=== PATIENT | female | born 1980 | race Caucasian/White ===

== ENCOUNTER → 2017-10-07 | Outpatient (CLI) | payer SELFPAY ==
--- NOTE | 2017-10-07 15:15 | RADIOLOGY REPORT (SQ) ---
EXAM DESCRIPTION: U/S [id number] TRNABD 1GES W/ODOP COMPLETED DATE/TIME: 10/07/2017 3:00 pm REASON FOR STUDY: ENCOUNTER FOR SUPERVISION OF NORMAL 1ST TRIMESTER Z34.81 ENCOUNTER FOR SUPRVSN OF NORMAL , FIRST TRIM COMPARISON: None. TECHNIQUE: Transabdominal static and realtime grayscale images acquired of the pelvis. Additional se lected spectral and color Doppler images recorded. All images stored on PACs. bHCG: Not available CLINICAL DATES: Last menses 08/08/2017 LIMITATIONS: None. FINDINGS: FETUS: Living intrauterine . ULTRASOUND EGA: 8 weeks 5 days ULTRASOUND BRODIE: 05/14/2018 CRL: 2.1 cm FHR: 173 beats per minute. SUBCHORIONIC BLEED: No SIZE OF BLEED: Not applicable. UTERUS: No masses. No anomalies. Uterus is 10 x 6 x 7 cm in size CERVICAL LENGTH: Closed, 2.7 cm in length RIGHT ADNEXA: Not visualized due to adnexal bowel gas. LEFT ADNEXA: Normal ovary with normal vascular flow. Left ovary 3 x 2.7 x 2.4 cm in size. No adnexal free fluid.No adnexal masses. FREE FLUID: None. OTHER: No other significant finding. IMPRESSION: LIVING INTRAUTERINE . EGA 8 weeks 5 days Trimester of : First - 0 to 13 weeks. TECHNICAL DOCUMENTATION: JOB ID: [id number] [employer]- All Rights Reserved rev Reading location - IP/workstation name: [facility]
== END ==
LOC: RAD 14:04
PROVIDERS: ATTEND Nurse Practitioner
DX: Z34.81 Encounter for supervision of other normal pregnancy, first trimester (principal)
CPT/HCPCS: 76801

== ENCOUNTER 2018-04-14 15:49 | Outpatient (CLI) | payer MEDICAID ==
--- NOTE | 2018-04-14 16:57 | Non Stress Test Report ---
Non Stress Test Datetime Report Generated by CPN: 04/14/2018 16:57 DEMOGRAPHIC Test Number: 1 EGA NST: 35.4 INDICATION Indication for Study: Ordered by Provider Indication for Study (NST) Other: lc to r/o srom MONITORING Monitor Explained: Monitor Explained; Test Explained; Patient Verbalized Understanding Time on Monitor: 04/14/2018 16:08 Time off Monitor: 04/14/2018 16:53 NST Duration: 45 NST INTERVENTIONS NST Interventions: PO Hydration; Reposition Patient Physician Notified NST: Dr Younger BABY A: [id number] BABY A Movement : Present Contraction Frequency : 8-9 FHR Baseline : 135 Accelerations : 15X15 Decelerations : None Variability : Moderate 6-25bpm NST Review: Meets Criteria for Reactive NST NST Results: Reactive NST REPORT Report Trigger: Send Report
== END 2018-04-14 16:58 | disposition home or self-care (01) ==
LOC: LC 15:49
PROVIDERS: ATTEND Obstetrics & Gynecology
PROC: 4A1HXCZ Monitoring of Products of Conception, Cardiac Rate, External Approach (ICD-10-PCS; principal; 2018-04-14)
DX: O47.03 False labor before 37 completed weeks of gestation, third trimester (principal); O09.523 Supervision of elderly multigravida, third trimester; O99.283 Endocrine, nutritional and metabolic diseases complicating pregnancy, third trimester; E03.9 Hypothyroidism, unspecified; Z3A.35 35 weeks gestation of pregnancy
CPT/HCPCS: 59025; 84112

== ENCOUNTER 2018-04-24 01:44 | Inpatient (IN) | payer MEDICAID ==
[2018-04-24 02:07] LABS: APPEARANCE,URINE SLIGHTLY-CLOUDY; BILIRUBIN,URINE NEGATIVE (NEGATIVE); COLOR,URINE YELLOW; GLUCOSE, URINE NEGATIVE (NEGATIVE); KETONES,URINE TRACE mg/dL (NEGATIVE); LEUKOCYTE ESTERASE,URINE TRACE (NEGATIVE); NITRITE,URINE NEGATIVE (NEGATIVE); PROTEIN,URINE NEGATIVE (NEGATIVE); URINE SPECIFIC GRAVITY 1.012; UROBILINOGEN,URINE NEGATIVE mg/dL (<2.0)
[2018-04-24] MEDS ORDERED: MISOPROSTOL 0.2 MG TABLET ONE (02:14)
[2018-04-24] MEDS ORDERED: LIDOCAINE 1% INJ-PF (10 MG/ML) 30 ML SDV ONE (02:14)
[2018-04-24] MEDS ORDERED: OXYTOCIN 10 UNIT/ML VIAL ONE (02:14)
[2018-04-24] MEDS ORDERED: OXYTOCIN/NORMAL SALINE 0 UNIT/0 ML RTUINJ ONE (02:14)
[2018-04-24] MEDS: RINGERS SOLUTION,LACTATED 1,000 ML IV PRN ×2 (02:21→06:57)
[2018-04-24 02:22] LABS: URINE AMPHETAMINES SCREEN NEGATIVE; URINE BARBITURATES SCREEN NEGATIVE; URINE BENZODIAZEPINES SCREEN NEGATIVE; URINE COCAINE SCREEN NEGATIVE; URINE MARIJUANA (THC) SCREEN NEGATIVE; URINE METHADONE SCREEN NEGATIVE; URINE PHENCYCLIDINE SCREEN NEGATIVE
[2018-04-24 02:29] LABS: ABSOLUTE EOSINOPHILS # (AUTO) 0.1 10^3/uL (0.0-0.6); ABSOLUTE LYMPHOCYTES (AUTO) 2.2 10^3/uL (0.5-4.7); ABSOLUTE MONOCYTES (AUTO) 0.5 10^3/uL (0.1-1.4); ABSOLUTE NEUT (AUTO) 6.3 10^3/uL (1.7-8.2); BASOPHILS % (AUTO) 0.5 % (0-2); HEMATOCRIT 29.9 % (36.0-47.0); HEMOGLOBIN 10.3 g/dL (12.0-15.5); MEAN CORPUSCULAR HEMOGLOBIN 28.8 pg (27.0-33.4); MEAN CORPUSCULAR HGB CONC 34.3 g/dL (32.0-36.0); MEAN CORPUSCULAR VOLUME 84 fl (80-97); MONOCYTES % (AUTO) 5.8 % (3-13); PLATELET COUNT 200 10^3/uL (150-450); RED BLOOD COUNT 3.56 10^6/uL (3.72-5.28); RED CELL DISTRIBUTION WIDTH 13.9 % (11.5-14.0); SEGMENTED NEUTROPHILS % (AUTO) 68.7 % (42-78); TOTAL CELLS COUNTED % (AUTO) 100 %; WHITE BLOOD COUNT 9.2 10^3/uL (4.0-10.5)
[2018-04-24] MEDS ORDERED: OXYTOCIN/NORMAL SALINE 20 UNIT/1,000 ML RTUINJ ONE (05:01)
[2018-04-24] MEDS ORDERED: OXYTOCIN/NORMAL SALINE 20 UNIT/1,000 ML RTUINJ IV PRN ×2 (05:04→12:43)
[2018-04-24] MEDS ORDERED: HYDRALAZINE HCL 10 MG TABLET PEG PRN (05:18)
[2018-04-24] MEDS ORDERED: TRAZODONE HCL 50 MG TABLET PEG ONE (06:00)
--- NOTE | 2018-04-24 06:00 | Admission Physical ---
Datetime Report Generated by CPN: 04/24/2018 06:00 CURRENT ADMISSION Chief Complaint: Uterine Contractions Indication for Induction: Not Applicable Admit Impression : Term, Intrauterine Admit Plan: Initiate Labor Protocol ALLERGIES Medication Allergies: Yes Medication Allergies: Amoxicillin No Known Allergies (10/17/2017) Latex: No Latex Allergies Food Allergies: n/a Environmental Allergies: n/a OBSTETRICAL HISTORY EDC: 05/15/2018 00:00 : 4 Para: 1 Term: 1 : 0 SAB: 2 IAB: 0 Ectopic: 0 Livin Cesareans: 0 VBACs: 0 Multiple Births: 0 Gestational Diabetes: No Rh Sensitization: No Incompetent Cervix: No LAZARO: No Infertility: Yes ART Treatment: No Uterine Anomaly: No IUGR: No Hx Previous C/S: No Macrosomia: No Hx Loss/Stillborn: No PIH: No Hx : No Placenta Previa/Abruption: No Depression/PP Depression: No PTL/PROM: No Post Hemorrhage: No Obstetrical History Comments: AMA, IUI in 2014 resulting in miscarrage SEE RECORDS Alcohol: No Marijuana : No Cocaine: No Other Illicit Drugs: No Cigarettes: Never Smoker. [id number] MEDICAL HISTORY Diabetes: No Blood Transfusion: No Pulmonary Disease (Asthma, TB): No Breast Disease: No Hypertension: No Greenskeeper Surgery: Yes Heart Disease: No Hosp/Surgery: Yes Autoimmune Disorder: No Anesthetic Complications: No Kidney Disease: No Abnormal Pap Smear: Yes Neuro/Epilepsy: No Psychiatric Disorders: No Other Medical Diseases: Yes Hepatitis/Liver Disease: No Significant Family History: No Varicosities/Phlebitis: No Trauma/Violence : No Thyroid Dysfunction: Yes Medical History Comments: Hypothyroidism, taking Levothyroxine, tonsillectomy 2006 LEEP tonsills removed at 18 years old INFECTIOUS HISTORY Gonorrhea: No Genital Herpes: No Chlamydia: No Tuberculosis: No Syphilis: No Hepatitis: No HIV/AIDS Exposure: No Rash or Viral Illness: No HPV: No PHYSICAL EXAM General: Normal HEENT: Normal Neurologic: Normal Thyroid: Normal Heart: Normal Lungs: Normal Breast: Deferred Back: Normal Abdomen: Normal Genitourinary Exam: Normal Extremities: Normal DTRs: Normal Pelvic Type: Adequate FETUS A EGA: 37.0 PLANS FOR LABOR AND DELIVERY Labor and Delivery: None Pain Management: Epidural Feeding Preference: Breast Benefit of Breast Feed Discussed: Yes Circumcision: N/A INFORMED CONSENT Signature: with User ID: [email or web address]
[2018-04-24] MEDS ORDERED: FENTANYL/BUPIVACAINE/NS/PF 300 MCG/150 ML RTUINJ EPI ONE (07:48)
[2018-04-24] MEDS ORDERED: EPHEDRINE SULFATE INJ 50 MG/1 ML AMPULE ONE (07:48)
[2018-04-24] MEDS ORDERED: LIDOCAINE 1.5%/EPINEPHRINE INJ 5 ML AMP ONE (07:49)
[2018-04-24] MEDS ORDERED: BUPIVACAINE HCL 0.25 % INJ/PF (2.5 MG/1 ML) 30 ML VIAL ONE (07:49)
[2018-04-24] MEDS ORDERED: MEASLES,MUMPS&RUBELLA VACC/PF 0.5 ML VIAL SUBCUT PRN (12:43)
[2018-04-24] MEDS ORDERED: BENZOCAINE/MENTHOL AEROSOL SPRAY 56 ML TOP PRN (12:43)
[2018-04-24] MEDS ORDERED: ZOLPIDEM TARTRATE 5 MG TABLET PO PRN (12:43)
[2018-04-24] MEDS ORDERED: ACETAMINOPHEN WITH CODEINE #3 TABLET PO PRN ×2 (12:43)
[2018-04-24] MEDS ORDERED: DIPH/PERTUSS(ACELL)/TETANUS VAC/PF 0.5 ML SYR (>=10YO) IM PRN (12:43)
[2018-04-24] MEDS ORDERED: DIBUCAINE 1% OINTMENT 56 GM TP PRN (12:43)
[2018-04-24] MEDS ORDERED: CLINDAMYCIN 900 MG/D5W RTU 900 MG/50 ML RTUPB IV PRN (12:45)
[2018-04-24] MEDS ORDERED: CLINDAMYCIN 900 MG/D5W RTU 900 MG/50 ML RTUPB IV ONE (12:52)
--- NOTE | 2018-04-24 14:27 | Delivery Summary ---
Del Sum A-C Datetime Report Generated by CPN: 04/24/2018 14:27 DELIVERY PERSONNEL DELIVERY PERSONNEL: [id number] Delivery Doctor:: Lisa Guthrie CNM Nurse Community Artist Certified:: Lisa Guthrie CNM Labor and Delivery Nurse:: Christine Holder RNprofessor criminal justice Nurse:: MEGAN Medina Sheet Metal Duct Installer Helper/ETCHER PHOTOENGRAVING: Farideh Aguirre, ST MATERNAL INFORMATION Delivery Anesthesia: Epidural Medications After Delivery: Pitocin Bolus-Please Comment Meds After Delivery Comment: pitocin 20 units in 1 L NS bolusing per order Maternal Complications: None Provider Comments: SVDVF over intact perineum. QUINTIN. vigorous, to mothers abd. Cord clamped after 2 min, cut per FOB, 3VC noted. Retained placenta, manually removed with minimal blood loss. Marginal cord insertion noted. Mother and infant stable. LABOR SUMMARY EDC: 05/15/2018 00:00 No. Babies in Womb: 1 Attempted: No Labor Anesthesia: Epidural LABOR INFORMATION Reason for Induction: Not Applicable Onset of Labor: 04/24/2018 01:00 Complete Dilatation: 04/24/2018 09:53 Oxytocin: Augmentation Group B Beta Strep: negative Antibiotics # of Doses: 0 Steroids Given: None Reason Steroids Not Administered: Not Applicable MEMBRANES Membranes Rupture Method: Spontaneous Rupture of Membranes: 04/24/2018 01:00 Length of Rupture (hr): 10.40 Amniotic Fluid Color: Clear Amniotic Fluid Amount: None Amniotic Fluid Odor: Normal STAGES OF LABOR Stage 1 hr: 8 Stage 1 min: 53 Stage 2 hr: 1 Stage 2 min: 31 Stage 3 hr: 0 Stage 3 min: 30 Total Time in Labor hr: 10 Total Time in Labor min: 54 VAGINAL DELIVERY Episiotomy: None Laceration #1: None Laceration Extension #1: N/A Laceration Repair: Not Applicable Laceration Repair Note: none needed Sponge Count Correct: N/A Sharps Count Correct: N/A CSECTION DELIVERY Primary Indication: N/A Secondary Indication: N/A CSection Incidence: N/A Labor: N/A Elective: N/A CSection Incision: N/A BABY A INFORMATION Infant Delivery Date/Time: 04/24/2018 11:24 Method of Delivery: Vaginal Born in Route : No : N/A Forceps: N/A Vacuum Extraction: N/A Shoulder Dystocia : No PRESENTATION/POSITION BABY A Presentation: Cephalic Cephalic Presentation: Vertex Vertex Position: Right Occipital Anterior Breech Presentation: N/A PLACENTA INFORMATION BABY A Placenta Delivery Time : 04/24/2018 11:54 Placenta Method of Delivery: Manual Removal Placenta Status: Delivered SCORES BABY A Heart Rate 1 min: >100 bpm Resp Effort 1 min: Good Cry Reflex Irritability 1 min: Cough or Sneeze or Pulls Away Muscle Tone 1 min: Active Motion Color 1 min: Body Shepherd, Extremities Blue Resuscitation Effort 1 min: Tactile Stimulation SCORE 1 MIN: 9 Heart Rate 5 min: >100 bpm Resp Effort 5 min: Good Cry Reflex Irritability 5 min: Cough or Sneeze or Pulls Away Muscle Tone 5 min: Active Motion Color 5 min: Body Shepherd, Extremities Blue Resuscitation Effort 5 min: N/A SCORE 5 MIN: 9 Resuscitation Effort 10 min: N/A INFORMATION BABY A Gestational Age at Delivery: 37.0 Gestational Status: Early Term- 37- 38.6 Weeks Infant Outcome : Stillborn Infant Condition : Stable Infant Sex: Female IDENTIFICATION BABY A Verification Date/Time: 04/24/2018 12:04 ID Band Number: [id number] Mother's Name Verified: Yes RN Verifying : CLuz winklerlisa RN, Vitaliy Hutchins RN WEIGHT/LENGTH BABY A Infant Birthweight (gm): 2754 Weight (lb): 6 Weight (oz): 1 Length (in): 18.50 Length (cm): 46.99 CORD INFORMATION BABY A No. Cord Vessels: 3 Nuchal Cord : N/A Nuchal Cord- Other: short cord Cord Blood Taken: Yes-For Storage (Mom's Blood type +) Suction: None ASSESSMENT BABY A Infant Complications: None Physical Findings at Delivery: Bruising Physical Findings- Other: facial bruising noted Infant Respirations: Appears Normal Skin to Skin: Yes Skin to Skin Time (min): 60 Customer Service Security Officer/ALS Called : No Care By: Roberto Hutchins RN/C Lisa RN Transferred To: Remains with Mother BABY B INFORMATION : N/A SIGNATURES Assignment: Frances Varela MD Signature: with User ID: [email or web address] : with User ID: [email or web address] : I was personally available for consultation and serving as supervising physician for the MLP.
[2018-04-24] MEDS: IBUPROFEN 800 MG TABLET PO SCH ×2 (15:16→18:36)
[2018-04-24] MEDS: FERROUS SULFATE 325 MG TABLET PO SCH (18:29)
[2018-04-24] MEDS: DOCUSATE SODIUM 100 MG CAPSULE PO SCH (18:29)
[2018-04-25] MEDS: IBUPROFEN 800 MG TABLET PO SCH ×4 (00:11→21:38)
[2018-04-25 08:19] LABS: HEMATOCRIT 26.7 % (36.0-47.0); HEMOGLOBIN 9.2 g/dL (12.0-15.5); MEAN CORPUSCULAR HEMOGLOBIN 29.2 pg (27.0-33.4); MEAN CORPUSCULAR HGB CONC 34.4 g/dL (32.0-36.0); MEAN CORPUSCULAR VOLUME 85 fl (80-97); PLATELET COUNT 163 10^3/uL (150-450); RED BLOOD COUNT 3.15 10^6/uL (3.72-5.28); WHITE BLOOD COUNT 10.5 10^3/uL (4.0-10.5)
--- NOTE | 2018-04-25 09:19 | PDOC PROGRESS REPORT ---
Subjective-OB Progress Note for:: 04/25/18 Subjective: Doing well, no c/o, , no c/o Physical Exam (OB) Vital Signs: Temp Pulse Resp BP Pulse Ox 97.6 F 83 16 112/73 98 04/25/18 08:00 04/25/18 08:00 04/25/18 08:00 04/25/18 08:00 04/25/18 08:00 Intake & Output 04/24/18 04/25/18 04/26/18 06:59 06:59 06:59 Intake Total 575 1600 Balance 575 1600 Weight 80 kg - PIH/Pre-Eclampsia DTR's: 1 + Clonus: Negative Headache: Absent Epigastric Pain: No Visual Changes: No - Lochia Lochia Amount: Scant < 10 ml Lochia Color: Rubra/Red - Abdomen Description: Soft Hernia Present: No Fundal Description: Firm, Midline Fundal Height: u/u - u/2 Objective-Diagnostic Laboratory: 04/25/18 07:55 04/25/18 07:55 WBC 10.5 RBC 3.15 L Hgb 9.2 L Hct 26.7 L MCV 85 MCH 29.2 MCHC 34.4 RDW 14.0 Plt Count 163 Assessment and Plan(PN) - Assessment and Plan (1) Anemia Qualifiers: Anemia type: iron deficiency Is this a current diagnosis for this admission?: Yes (2) Retained placenta w/o hemorrhage, delivered, current hospitalization Is this a current diagnosis for this admission?: Yes (3) Vaginal delivery Is this a current diagnosis for this admission?: Yes - Time Spent with Patient Time with patient: Less than 15 minutes Medications reviewed and adjusted accordingly: Yes - Disposition Anticipated Discharge: Home Within: within 24 hours
[2018-04-25] MEDS: DOCUSATE SODIUM 100 MG CAPSULE PO SCH ×2 (09:56→17:22)
[2018-04-25] MEDS: SENNOSIDES/DOCUSATE 8.6-50 MG 1 EACH TABLET PO SCH (09:56)
[2018-04-25] MEDS: FERROUS SULFATE 325 MG TABLET PO SCH ×2 (09:56→17:23)
[2018-04-25] MEDS: PRENATAL VITAMIN W DHA CAPSULE PO SCH (09:56)
[2018-04-26] MEDS ORDERED: LEVOTHYROXINE SODIUM 0.15 MG TABLET ONE (05:46)
[2018-04-26] MEDS: IBUPROFEN 800 MG TABLET PO SCH (05:48)
[2018-04-26] MEDS ORDERED: LEVOTHYROXINE SODIUM 0.15 MG TABLET PO SCH (06:00)
[2018-04-26 08:01] VITALS: BP 96/56
--- NOTE | 2018-04-26 09:55 | PDOC PROGRESS REPORT ---
Subjective-OB Progress Note for:: 04/26/18 Subjective: Ready to go home. Physical Exam (OB) Vital Signs: Temp Pulse Resp BP Pulse Ox 98.1 F 84 16 96/56 L 97 04/26/18 09:17 04/26/18 09:17 04/26/18 09:17 04/26/18 09:17 04/26/18 09:17 Intake & Output 04/25/18 04/26/18 04/27/18 06:59 06:59 06:59 Intake Total 1600 Balance 1600 Weight 80 kg - PIH/Pre-Eclampsia DTR's: 1 + Clonus: Negative Headache: Absent Epigastric Pain: No Visual Changes: No - Lochia Lochia Amount: Scant < 10 ml Lochia Color: Rubra/Red - Abdomen Description: Soft, Round Hernia Present: No Bowel Sounds: Normoactive Flatus Presence: Present Stool: Yes Fundal Description: Firm, Midline Fundal Height: u/u - u/2 Objective-Diagnostic Laboratory: 04/25/18 07:55 Assessment and Plan(PN) - Time Spent with Patient Medications reviewed and adjusted accordingly: Yes - Disposition Anticipated Discharge: Home
--- NOTE | 2018-04-26 10:01 | PDOC DISCHARGE SUMMARY ---
Final Diagnosis Discharge Date: 04/26/18 - Final Diagnosis (1) AMA (advanced maternal age) multigravida 35+ Is this a current diagnosis for this admission?: Yes (2) Anemia Is this a current diagnosis for this admission?: Yes (3) Hypothyroidism Is this a current diagnosis for this admission?: Yes (4) Retained placenta w/o hemorrhage, delivered, current hospitalization Is this a current diagnosis for this admission?: Yes (5) Vaginal delivery Is this a current diagnosis for this admission?: Yes Discharge Data - Discharge Medication Prescriptions: Ferrous Sulfate [Feosol 325 mg Tablet] 325 mg PO BID #60 tablet Home Medications: Levothyroxine Sodium 150 mcg PO DAILY 10/17/17 Prenat 115/Iron Fum/Folic/Dss [ 19 Tablet] 1 tab PO DAILY 04/14/18 Ferrous Sulfate [Feosol 325 mg Tablet] 325 mg PO BID #60 tablet 04/26/18 Gestational Age: 37 wks Reason(s) for Admission: Onset of Labor Procedures: Ultrasound Intrapartum Procedure(s): Spontaneous Vaginal Delivery - [place] Data Baby 1 Female at 1 minute: 9 at 5 minutes: 9 Weight: 2.75 kg Home with Mother: Yes Complications: No - Diagnosis Test Laboratory: Temp Pulse Resp BP Pulse Ox 98.1 F 84 16 96/56 L 97 04/26/18 09:17 04/26/18 09:17 04/26/18 09:17 04/26/18 09:17 04/26/18 09:17 04/24/18 04/24/18 04/25/18 01:51 02:21 07:55 RBC 3.56 L 3.15 L Hgb 10.3 L 9.2 L Hct 29.9 L 26.7 L Urine Opiates Screen NEGATIVE - Discharge information/Instructions Discharge Activity: Activity As Tolerated, Balance Activity w/Rest, No Lifting Over 10 Pounds, No Lifting/Push/Pulling, Pelvic Rest, Slowly Increase Activity, No tub bath, Walk Frequently Discharge Diet: Regular Disposition: HOME, SELF-CARE Follow [facility] with: [facility] in: 4, Weeks
[2018-04-26] MEDS: SENNOSIDES/DOCUSATE 8.6-50 MG 1 EACH TABLET PO SCH (10:02)
[2018-04-26] MEDS: DOCUSATE SODIUM 100 MG CAPSULE PO SCH (10:03)
[2018-04-26] MEDS: FERROUS SULFATE 325 MG TABLET PO SCH (10:03)
[2018-04-26] MEDS: PRENATAL VITAMIN W DHA CAPSULE PO SCH (10:03)
== END 2018-04-26 13:18 | disposition home or self-care (01) | DRG 807 ==
LOC: LC 01:44 → LR 02:12 → 2S 14:35
PROVIDERS: ADMIT Obstetrics & Gynecology Gynecology; ATTEND Obstetrics & Gynecology Gynecology
PROC: 10E0XZZ Delivery of Products of Conception, External Approach (ICD-10-PCS; principal; 2018-04-24)
PROC: 4A1HXCZ Monitoring of Products of Conception, Cardiac Rate, External Approach (ICD-10-PCS; 2018-04-24)
DX: O99.284 Endocrine, nutritional and metabolic diseases complicating childbirth (principal); Z37.0 Single live birth; E03.9 Hypothyroidism, unspecified; O99.02 Anemia complicating childbirth; D50.9 Iron deficiency anemia, unspecified; O73.0 Retained placenta without hemorrhage; O69.3XX0 Labor and delivery complicated by short cord, not applicable or unspecified; Z88.1 Allergy status to other antibiotic agents; Z79.890 Hormone replacement therapy; Z3A.37 37 weeks gestation of pregnancy
CPT/HCPCS: 36415; 80307; 81005; 85025; 85027; 86592; 86850; 86900; 86901; 88307; 94760; J2590; J3010; J3490